=== PATIENT | male | born 1990 | race Caucasian/White ===

== ENCOUNTER 2018-12-13 16:42 | Observation (INO) | payer OTHER ==
[~2018-12-13] VITALS: Ht 180.3 cm; Wt 72.6 kg
[~2018-12-13 16:42] MED LIST: Amoxicillin500 MG PO; Bactrim Ds Tab1 EACH PO; CEPH500 PO; PENVK500 PO; SULTRIDS PO; TRAM50 PO
[2018-12-13 17:54] LABS: BASOPHILS ABSOLUTE AUTO 0.08 K/mm3 (0.00-0.23); BASOPHILS PERCENT AUTO 1 % (0-2); EOSINOPHILS ABSOLUTE AUTO 0.34 K/mm3 (0.00-0.68); EOSINOPHILS PERCENT AUTO 3 % (0-6); Hematocrit 43.6 % (37.0-53.0); Hemoglobin 14.1 g/dL (13.5-17.5); IMMATURE GRAN ABSOLUTE AUTO 0.03 K/mm3 (0.00-0.10); IMMATURE GRAN PERCENT AUTO 0 % (0-1); LYMPHOCYTES ABSOLUTE AUTO 3.27 K/mm3 (0.84-5.20); LYMPHOCYTES PERCENT AUTO 26 % (21-46); MONOCYTES ABSOLUTE AUTO 0.95 K/mm3 (0.16-1.47); MONOCYTES PERCENT AUTO 8 % (4-13); Mean Corpuscular HGB Conc 32.3 g/dL (31.5-36.5); Mean Corpuscular Volume 93 fL (80-100); Mean Platelet Volume 9.5 fL (9.1-12.4); NEUTROPHILS ABSOLUTE AUTO 8.06 K/mm3 (1.96-9.15); NEUTROPHILS PERCENT AUTO 63 % (41-73); Platelet Count 274 K/mm3 (150-400); RDW Standard Deviation 44.1 fL (35.1-46.3); White Blood Cell Count 12.73 K/mm3 (4.00-11.30)
[2018-12-13 18:31] LABS: Alanine Aminotransfer (ALT/SGP 18 U/L (12-78); Albumin, Blood 3.9 g/dL (3.4-5.0); Alk Phos 81 U/L (50-136); Anion Gap 5 mmol/L (6-16); Aspartate Aminotrans (AST/SGOT 11 U/L (12-37); Bilirubin, Total 0.3 mg/dL (0.1-1.0); Blood Urea Nitrogen 14 mg/dL (8-24); Bun/Creatinine Ratio 18.5 (12.0-20.0); CO2, Blood 26 mmol/L (21-32); Calcium, Blood 8.7 mg/dL (8.5-10.1); Chloride, Blood 107 mmol/L (98-108); Creatinine, Blood 0.76 mg/dL (0.60-1.20); Globulin, Blood 3.8 g/dL (2.2-4.0); Glomerular Filtration Rate >60 (60-); Glucose, Blood 83 mg/dL (70-99); Potassium, Blood 3.9 mmol/L (3.5-5.5); Salicylate 3.5 mg/dL (2.8-20.0); Sodium, Blood 138 mmol/L (136-145); Total Protein, Blood 7.7 g/dL (6.4-8.2)
[2018-12-13 18:40] LABS: Acetaminophen, Random <2.0 ug/mL (10.0-30.0); Ethanol (Alcohol), Blood, Med <3 mg/dL
[2018-12-13 21:20] LABS: Source, Urine Clean Catch
[2018-12-13 21:22] LABS: Bilirubin, Urine Neg (Neg); Blood, Urine Neg (Neg); Glucose Qualitative, Urine Neg (Neg); Ketones, Urine 1+ (Neg); Leukocyte Esterase, Urine 1+ (Neg); Nitrite, Urine Neg (Neg); Protein, Urine 1+ (Neg); Urobilinogen, Urine NORM (Normal)
[2018-12-13 21:31] LABS: Appearance, Urine Clear (Clear); Color, Urine Yellow (P-Yellow)
[2018-12-13 21:32] LABS: Bacteria Mod /hpf; Red Blood Cells, Urine 0-2 /hpf (0-2); Spermatozoa Rare /hpf; Squamous Epithelial Cells Not Seen /hpf (Few)
[2018-12-13 21:34] LABS: U Amphetamine Screen DETECTED; U Barbituate Screen Not Detected; U Benzodiazapine Screen Not Detected; U Buprenorphine Screen Not Detected; U Cannabinoids Screen DETECTED; U Cocaine Screen Not Detected; U Methadone Screen Not Detected; U Methamphetamine Screen DETECTED; U Opiates Screen Not Detected; U Oxycodone Screen Not Detected; U Phencyclidine Screen Not Detected; U Propoxyphene Screen Not Detected
[2018-12-17] MEDS ORDERED: QUET100 PO (10:51)
== END 2018-12-17 11:01 | disposition home or self-care (01) ==
LOC: ER 16:42 → EOR 16:43
PROVIDERS: ADMIT Emergency Medicine
DX: F30.9 Manic episode, unspecified (principal); F23 Brief psychotic disorder; F15.10 Other stimulant abuse, uncomplicated; F17.200 Nicotine dependence, unspecified, uncomplicated
CPT/HCPCS: 36415; 80053; 81001; 84443; 85025; 87086; 99285; G0378; G0480

== ENCOUNTER 2021-04-13 10:04 | Emergency (ER) | payer OTHER ==
[~2021-04-13] VITALS: Ht 177.8 cm; Wt 79.4 kg
[~2021-04-13 10:04] MED LIST changes: +QUET100 PO
[2021-04-13] MEDS ORDERED: AMOCLA875 PO (10:07)
== END 2021-04-13 10:31 | disposition home or self-care (01) ==
LOC: ER 10:04
DX: S61.551A Open bite of right wrist, initial encounter (principal); F17.200 Nicotine dependence, unspecified, uncomplicated; Z23 Encounter for immunization; W54.0XXA Bitten by dog, initial encounter
CPT/HCPCS: 90471; 90714; 99282-25

== ENCOUNTER 2022-12-19 09:51 | Observation (INO) | payer OTHER ==
[~2022-12-19] VITALS: Ht 170.2 cm; Wt 80.7 kg
[~2022-12-19 09:51] MED LIST changes: +AMOCLA875 PO
[2022-12-19 11:15] LABS: BASOPHILS ABSOLUTE AUTO 0.03 K/mm3 (0.00-0.23); BASOPHILS PERCENT AUTO 0 % (0-2); EOSINOPHILS ABSOLUTE AUTO 0.03 K/mm3 (0.00-0.68); EOSINOPHILS PERCENT AUTO 0 % (0-6); Hematocrit 39.1 % (37.0-53.0); Hemoglobin 13.6 g/dL (13.5-17.5); IMMATURE GRAN ABSOLUTE AUTO 0.03 K/mm3 (0.00-0.10); IMMATURE GRAN PERCENT AUTO 0 % (0-1); LYMPHOCYTES ABSOLUTE AUTO 1.55 K/mm3 (0.84-5.20); LYMPHOCYTES PERCENT AUTO 16 % (21-46); MONOCYTES ABSOLUTE AUTO 0.76 K/mm3 (0.16-1.47); MONOCYTES PERCENT AUTO 8 % (4-13); Mean Corpuscular HGB 30.7 pg (26.0-34.0); Mean Corpuscular HGB Conc 34.8 g/dL (31.5-36.5); Mean Corpuscular Volume 88 fL (80-100); Mean Platelet Volume 10.4 fL (9.1-12.4); NEUTROPHILS ABSOLUTE AUTO 7.38 K/mm3 (1.96-9.15); NEUTROPHILS PERCENT AUTO 76 % (41-73); Platelet Count 226 K/mm3 (150-400); RDW Standard Deviation 42.5 fL (35.1-46.3); Red Blood Cell Count 4.43 M/mm3 (4.30-5.90); White Blood Cell Count 9.78 K/mm3 (4.00-11.30)
[2022-12-19 11:33] LABS: Ethanol (Alcohol), Blood, Med <3 mg/dL; Salicylate 4.4 mg/dL (2.8-20.0)
[2022-12-19 11:43] LABS: Acetaminophen, Random <2.0 ug/mL (10.0-30.0); Alanine Aminotransfer (ALT/SGP 11 U/L (12-78); Albumin, Blood 3.6 g/dL (3.4-5.0); Alk Phos 64 U/L (50-136); Anion Gap 6 mmol/L (6-16); Aspartate Aminotrans (AST/SGOT 10 U/L (12-37); Bilirubin, Total 0.4 mg/dL (0.1-1.0); Blood Urea Nitrogen 6 mg/dL (8-24); Bun/Creatinine Ratio 8.4 (12.0-20.0); CO2, Blood 25 mmol/L (21-32); Calcium, Blood 8.9 mg/dL (8.5-10.1); Chloride, Blood 108 mmol/L (98-108); Creatinine, Blood 0.71 mg/dL (0.60-1.20); Globulin, Blood 3.6 g/dL (2.2-4.0); Glomerular Filtration Rate 125 (60-); Glucose, Blood 109 mg/dL (70-99); Potassium, Blood 2.8 mmol/L (3.5-5.5); Sodium, Blood 139 mmol/L (136-145); Total Protein, Blood 7.2 g/dL (6.4-8.2)
[2022-12-19 12:26] LABS: Source, Urine Clean Catch
[2022-12-19 12:34] LABS: Appearance, Urine Clear (Clear); Bilirubin, Urine Neg (Neg); Blood, Urine Neg (Neg); Color, Urine Yellow (P-Yellow); Glucose Qualitative, Urine Neg (Neg); Ketones, Urine 1+ (Neg); Leukocyte Esterase, Urine Neg (Neg); Nitrite, Urine Neg (Neg); Protein, Urine 1+ (Neg); Urobilinogen, Urine 2+ (Normal)
[2022-12-19 13:06] LABS: U Amphetamine Screen DETECTED; U Barbituate Screen Not Detected; U Benzodiazapine Screen Not Detected; U Buprenorphine Screen Not Detected; U Cannabinoids Screen DETECTED; U Cocaine Screen Not Detected; U Methadone Screen Not Detected; U Methamphetamine Screen DETECTED; U Opiates Screen Not Detected; U Oxycodone Screen Not Detected; U Phencyclidine Screen Not Detected; U Propoxyphene Screen Not Detected
[2022-12-19 14:01] LABS: Influenza A, PCR NEGATIVE (NEGATIVE); Influenza B, PCR NEGATIVE (NEGATIVE); Resp Syncytial Virus, PCR NEGATIVE (NEGATIVE); SARS-Cov-2 (COVID-19) PCR, MMC NEGATIVE (NEGATIVE)
== END 2022-12-21 20:15 ==
LOC: ER 09:51 → EOR 09:52
PROVIDERS: ADMIT Student in an Organized Health Care Education/Training Program
DX: F20.9 Schizophrenia, unspecified (principal); F15.10 Other stimulant abuse, uncomplicated; F12.10 Cannabis abuse, uncomplicated; F31.9 Bipolar disorder, unspecified; S61.511A Laceration without foreign body of right wrist, initial encounter; W25.XXXA Contact with sharp glass, initial encounter; F17.210 Nicotine dependence, cigarettes, uncomplicated; F17.290 Nicotine dependence, other tobacco product, uncomplicated; Z79.899 Other long term (current) drug therapy; Z20.822 Contact with and (suspected) exposure to COVID-19; Z23 Encounter for immunization
CPT/HCPCS: 0241U; 12001; 73100; 80053; 83735; 85025; 90471; 90714; 93005; 93010; 99285-25; A9270; G0378; G0480; Q3014

== ENCOUNTER 2025-04-16 11:29 | Inpatient (IN) | payer OTHER ==
[~2025-04-16] VITALS: Ht 170.2 cm; Wt 78.7 kg
[2025-04-16] MEDS ORDERED: OLANZapine ODT 10 MG Tab MM PRN (14:50)
[2025-04-16] MEDS ORDERED: Calcium Carbonate 500 MG Tab Chew PO PRN (14:50)
[2025-04-16] MEDS ORDERED: TraZODone HCl 50 MG Tab PO PRN (14:50)
[2025-04-16] MEDS ORDERED: Ondansetron 4 MG SoluTab MM PRN (14:50)
[2025-04-16] MEDS ORDERED: Melatonin 3 MG Tab PO PRN (14:50)
[2025-04-16] MEDS ORDERED: Acetaminophen 325 MG TABLET PO PRN (14:50)
[2025-04-16] MEDS ORDERED: Polyethylene Glycol 3350 17 gm PO PRN (14:50)
[2025-04-16] MEDS ORDERED: Ibuprofen 600 MG Tab PO PRN (14:55)
[2025-04-16] MEDS ORDERED: Haloperidol 5 MG Tab PO PRN (14:55)
[2025-04-16] MEDS ORDERED: HydrOXYzine Pamoate 50 MG Cap PO PRN (14:55)
[2025-04-16] MEDS ORDERED: Haloperidol Lactate Inj. 5 MG/ML Injection IM PRN (14:55)
[2025-04-16] MEDS ORDERED: DiphenhydrAMINE HCl 50 MG/ML 1ML Vial IM PRN (14:55)
[2025-04-16] MEDS ORDERED: Aluminum Hydroxide 320MG/5ML 473 ML PO PRN (14:55)
[2025-04-16] MEDS ORDERED: DiphenhydrAMINE HCl 50 MG Cap PO PRN (14:55)
[2025-04-16] MEDS ORDERED: LORazepam 2 MG Tab PO PRN (15:00)
[2025-04-16] MEDS ORDERED: LORazepam 2 MG/ML 1ML Injection IM PRN (15:00)
[2025-04-16 15:09] VITALS: BP 123/80
[2025-04-16 15:45] VITALS: BP 123/80
--- NOTE | 2025-04-16 18:11 | NUR ---
ADMISSION PT ADMITTED FROM ED FOR DECOMPENSATED SCHIZOAFFECTIVE DISORDER. WHEN PT CAME TO U HE WAS VERY SLEEPY AND UNABLE TO ANSWER MOST QUESTIONS. PT MEDICATED IN THE ED AND HAD NOT SLEPT FOR A LONG TIME PRIOR TO ADMISSION, SO PT IS CURRENTLY RESTING. PT UNABLE TO SIGN ADMISSION PAPER WORK DUE TO BEING TOO TIRED. MOST INFORMATION GATHERED FROM ED CHART. PT HOWEVER, DID DENY SI OR HI. HE SAID THAT HE WAS BROUGHT TO THE ED BECAUSE HE "HAD A SPATULA AND WANTED MY DOG AND EVERYONE HAD MY DOG". PER FAMILY THE PATIENT WAS RECENTLY DISCHARGED FROM INPATIENT PSYCH FACILITY AND HAS NOT BEEN TAKING HIS MEDICATIONS. SKIN CHECK CONDUCTED BY 2 RN'S AND NO ABNORMALITIES NOTED. HE WAS ORIENTED TO THE UNIT AND HIS ROOM. PT HAD A SNACK AND HAS BEEN SLEEPING SINCE. HE CONTINUES TO BE MONITORED Q15 FOR SAFETY AND WELLNESS.
[2025-04-16 20:18] VITALS: BP 107/71
[2025-04-16] MEDS ORDERED: OLANZapine 10 MG Tab PO SCH (21:00)
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
--- NOTE | 2025-04-17 04:20 | NUR ---
END OF SHIFT UPDATE ASSUMED CARE OF PT AT 2345. NO ACUTE CHANGES. PT HAS REMAINED IN BED THROUGHOUT THE NIGHT. Q15 MINUTE CHECKS TO CONTINUE PER PT SAFETY.
[2025-04-17 07:39] LABS: Cholesterol 213 mg/dL (50-200); HDL Cholesterol 43 mg/dL (>39); LDL/HDL RATIO 3.5; Low Density Lipoprotein Chol 151 mg/dL (0-110); Triglycerides 93 mg/dL (30-140); Very Low Density Lipoprot Chol 18 mg/dL (6-28)
[2025-04-17 08:57] VITALS: BP 124/90
[2025-04-17] MEDS ORDERED: Multivitamins 1 Tab PO SCH (09:00)
--- NOTE | 2025-04-17 18:17 | NUR ---
SHIFT SUMMARY PT AxOx4. PLEASANT AND COOPERATIVE WITH CARE, BUT TENDS TO BECOME LOUD AT TIMES AND NEEDS REMINDED TO LOWER HIS TONE. PT IS EASILY REDIRECTABLE. HE ALSO HAD SOME DELUSIONS ABOUT NEEDING TREATMENT FOR A BITE HE GOT ON HIS HAND ABOUT A YEAR AGO. PT'S HAND WAS EXAMINED AND SHOWED NO SIGNS OR SYMPTOMS OF INFECTION OR SKIN IRRITATION. PATIENT WAS ENCOURAGED TO KEEP HANDS HYGIENIC MUCH POSSIBLE AND HE WAS AGREEABLE TO THIS PLAN. HE IS CURRENTLY ON AN INVOLUNTARY HOLD. HE DENIES SI/HI AND AVTH THIS SHIFT AND HAS BEEN PARTICIPATING IN GROUPS AND TAKING HIS MEDICATION PRESCRIBED. HE IS CURRENTLY IN THE DINING ROOM EATING DINNER. DENIES ANY NEEDS AT THIS TIME.
[2025-04-17 21:00] VITALS: BP 127/89
[2025-04-17] MEDS ORDERED: RisperiDONE 1 MG Tab PO SCH (21:00)
--- NOTE | 2025-04-18 04:23 | NUR ---
SHIFT SUMMARY PT LAYING IN BED AT START OF SHIFT, AWAKES EASILY FOR EVENING SNACK. ORIENTED TO SELF AND PLACE. PT WITH PRESSURED SPEECH, FLIGHT OF IDEAS AND DELUSIONAL. CONVERSATION IS DIFFICULT TO FOLLOW AND UNDERSTAND AT TIMES. HE STATED HIS MOOD WAS "NOT TRYING TO BE A SPAGHETTI BALL NIGHTMARE." PT DENIES ANY SI, HI, THOUGHTS OF SELF HARM OR HALLUCINATIONS, HOWEVER HE STATES THAT HE SAW ALIENS SITTING IN THE PAST 56 HOURS. HE HAD EVENING SNACK AND WAS COMPLIANT WITH MEDS. HE WENT TO BED AFTER SNACK AND HAS REMAINED IN BED THROUGHOUT THE NIGHT. Q15 MINUTE CHECKS TO CONTINUE PER PT SAFETY.
[2025-04-18] MEDS ORDERED: Paliperidone Palmitate 234 MG/1.5 ML SYR IM ONE (17:00)
--- NOTE | 2025-04-18 17:41 | NUR ---
SHIFT SUMMARY: PT ALERT AND COOPERATIVE WITH CARE. PT CONVERSATION TANGINTAL, BOUNCING FROM SUBJECT TO SUBJECT. UNABLE TO FOLLOW THE TOPIC OF HIS COVERSATION. STATED, "I NEED TO CALL THE STEELWORKER, I NEED TO REPORT SEX OFFENDER. THEN STATED THAT HE HAD HAS " A MILLION DOLLAR NECKLACE OUT THERE". PT COMPLIANT WITH MEDICATIONS AND CARE. INVEGA INJECTION GIVEN WITHOUT DIFFICULTY. PT BECAME AGGITATED IN THE AFTERNOON AND WAS MEDICATED WITH PRN PER EMAR. PT CALMED AFTER AND SPENT TIME ON PATIO TALKING WITH PEERS AND STAFF.
--- NOTE | 2025-04-18 18:23 | NUR ---
PT PACING THE HALLS, RAISING HIS VOICE. OFFERED PT A PRN, HE STATED THAT HE IS NOT ABLE TO TAKE HALDOL. ORAL MEDS HELD AT THIS TIME.
[2025-04-18 19:32] VITALS: BP 122/87
--- NOTE | 2025-04-18 23:51 | NUR ---
MID SHIFT SUMMARY Patient very high energy this evening. Speaking very rapidly in a nonsensicle manner. Denies SI,HI and AVTH during conversation. Took all medications without difficulty. Very pleasant, very difficult to understand. Checks for safety and comfort continue every 15 minutes
--- NOTE | 2025-04-19 04:08 | NUR ---
END OF SHIFT UPDATE ASSUMED CARE OF PT AT 0015. NO ACUTE CHANGES. PT HAS REMAINED IN BED THROUGHOUT THE NIGHT. Q15 MINUTE CHECKS TO CONTINUE PER PT SAFETY.
[2025-04-19 07:25] VITALS: BP 120/91
--- NOTE | 2025-04-19 17:03 | NUR ---
SHIFT SUMMARY: PT ALERT AND COOPERATIVE WITH CARE. DENIES SI, HI AND AVH TODAY. PT COMPLIANT WITH MEDICATIONS. PT ATTENDED GROUPS AND WAS PRESENT FOR MEALS. PT SPENT TIME IN THE DAY ROOM WATCHING TV, PACING IN THE HALLS AND OUTSIDE ON THE PATIO. PT ACTIVE IN THE MILIEU TALKING WITH PEERS AND STAFF.
--- NOTE | 2025-04-19 17:06 | NUR ---
"Spiritual Care Visit | Pt. Request Met Pt. in a [facility] meeting room. Pt. is pleasant, but ocassionally displays moment of impulsive confusion. Attempted to facilitate a life review. Pt. verbalized some details of his family and neighbors. Through theraputic listening it was my assessment that the Pt. requested specific things that this metal window frame maker could not provide other than prayer. Prayed with the Pt. Pt. verbalized gratitude for the spiritual care visit."
[2025-04-19 21:07] VITALS: BP 155/85
--- NOTE | 2025-04-20 04:59 | NUR ---
SHIFT SUMMARY: PATIENT WAS IN THE DAY ROOM AND ON THE PATIO AT THE BEGINNING OF THE SHIFT, TALKING WITH STAFF AND PEERS, AND DANCING AND SINGING. HE PARTICIPATED IN WINE SPECIALIST, BUT ANSWERED QUESTIONS IN A TANGENTIAL AND NONSENSICAL MANNER. HE DENIED SUICIDAL IDEATION, THOUGHTS OF SELF HARMING AND A/V HALLUCINATIONS. HE PARTICIPATED IN SNACK AND WRAP UP GROUP AT 2030 IN THE DINING AREA, AND WAS COMPLIANT WITH EVENING MEDICATIONS. HE WENT TO BED SHORTLY AFTER SNACK AND WAS NOTED TO BE RESTING QUIETLY WITH EYES CLOSED AND RESPIRATIONS CONFIRMED FOR THE REMAINDER OF THE SHIFT. CONTINUING TO MONITOR FOR SAFETY WITH Q15 MINUTE CHECKS.
[2025-04-20 08:48] VITALS: BP 125/85
[2025-04-20] MEDS ORDERED: HYDPAM50 PO (15:58)
[2025-04-20] MEDS ORDERED: TRAZ50 PO (15:59)
[2025-04-20] MEDS ORDERED: RISP2 PO (15:59)
--- NOTE | 2025-04-20 17:54 | NUR ---
DISCHARGE SUMMARY: PT DISCHARGED TO HOME WITH HIS MOTHER WITH ALL OF HIS BELONGINGS AND PRINTED DISCHARGE INSTRUCTIONS. PT DISCHARGED AT 1800.
== END 2025-04-20 18:00 | disposition home or self-care (01) | DRG 885 ==
LOC: BHU 11:29
PROVIDERS: ADMIT Student in an Organized Health Care Education/Training Program
DX: F20.0 Paranoid schizophrenia (principal); R45.851 Suicidal ideations; F12.90 Cannabis use, unspecified, uncomplicated; Z79.899 Other long term (current) drug therapy; Z79.1 Long term (current) use of non-steroidal anti-inflammatories (NSAID)
CPT/HCPCS: 36415; 80061; 83036; A9270

== ENCOUNTER 2025-06-01 04:50 | Emergency (ER) | payer OTHER ==
[~2025-06-01] VITALS: Ht 180.3 cm; Wt 111.1 kg
[~2025-06-01 04:50] MED LIST changes: +HYDPAM50 PO; +RISP2 PO; +TRAZ50 PO
[2025-06-01 05:35] LABS: BASOPHILS ABSOLUTE AUTO 0.03 K/mm3 (0.00-0.23); BASOPHILS PERCENT AUTO 0 % (0-2); EOSINOPHILS ABSOLUTE AUTO 0.04 K/mm3 (0.00-0.68); EOSINOPHILS PERCENT AUTO 0 % (0-6); Hematocrit 36.2 % (37.0-53.0); Hemoglobin 11.9 g/dL (13.5-17.5); IMMATURE GRAN ABSOLUTE AUTO 0.04 K/mm3 (0.00-0.10); IMMATURE GRAN PERCENT AUTO 0 % (0-1); LYMPHOCYTES ABSOLUTE AUTO 2.11 K/mm3 (0.84-5.20); LYMPHOCYTES PERCENT AUTO 15 % (21-46); MONOCYTES ABSOLUTE AUTO 1.65 K/mm3 (0.16-1.47); MONOCYTES PERCENT AUTO 12 % (4-13); Mean Corpuscular HGB Conc 32.9 g/dL (31.5-36.5); Mean Corpuscular Volume 90 fL (80-100); NEUTROPHILS ABSOLUTE AUTO 10.34 K/mm3 (1.96-9.15); NEUTROPHILS PERCENT AUTO 73 % (41-73); NRBC ABSOLUTE 0.00 K/mm3 (0.00-0.02); NRBC Auto 0.0 /100 WBC (0.0-0.2); Platelet Count 245 K/mm3 (150-400); RDW Coefficient Variation 14.5 % (11.7-14.2); RDW Standard Deviation 47.4 fL (35.1-46.3)
[2025-06-01 06:20] LABS: Ethanol (Alcohol), Blood, Med <3 mg/dL; Salicylate 2.1 mg/dL (2.8-20.0)
[2025-06-01 06:24] LABS: Acetaminophen, Random <2.0 ug/mL (10.0-30.0); Alanine Aminotransfer (ALT/SGP 22 U/L (12-78); Albumin, Blood 3.6 g/dL (3.4-5.0); Albumin/Globulin Ratio 1.0 (0.8-1.8); Anion Gap 9 mmol/L (3-11); Aspartate Aminotrans (AST/SGOT 16 U/L (12-37); Bilirubin, Total 1.1 mg/dL (0.1-1.0); Blood Urea Nitrogen 15 mg/dL (8-24); CO2, Blood 26 mmol/L (21-32); Calcium, Blood 8.6 mg/dL (8.5-10.1); Chloride, Blood 103 mmol/L (98-108); Creatinine, Blood 0.87 mg/dL (0.60-1.20); Globulin, Blood 3.5 g/dL (2.2-4.0); Glucose, Blood 99 mg/dL (70-99); Potassium, Blood 3.4 mmol/L (3.5-5.5); Sodium, Blood 135 mmol/L (136-145); Total Protein, Blood 7.1 g/dL (6.4-8.2)
[2025-06-01] MEDS ORDERED: NS 1,000 ML IV SCH (09:10)
[2025-06-01 09:31] LABS: Source, Urine Clean Catch
[2025-06-01 09:40] LABS: Bilirubin, Urine Neg (Neg); Glucose Qualitative, Urine Neg (Neg); Ketones, Urine 3+ (Neg); Leukocyte Esterase, Urine Neg (Neg); Protein, Urine Neg (Neg); Specific Gravity, Urine 1.020 (1.003-1.022); Urobilinogen, Urine NORM (Normal)
[2025-06-01 09:46] LABS: Color, Urine Yellow (P-Yellow)
[2025-06-01 09:53] LABS: U Amphetamine Screen DETECTED; U Barbituate Screen Not Detected; U Benzodiazapine Screen Not Detected; U Buprenorphine Screen Not Detected; U Cannabinoids Screen DETECTED; U Cocaine Screen Not Detected; U Methadone Screen Not Detected; U Methamphetamine Screen DETECTED; U Opiates Screen Not Detected; U Oxycodone Screen Not Detected; U Phencyclidine Screen Not Detected
[2025-06-01 13:55] VITALS: BP 105/59
== END 2025-06-01 13:55 | disposition home or self-care (01) ==
LOC: ER 04:50
PROVIDERS: Emergency Medicine
DX: T43.591A Poisoning by other antipsychotics and neuroleptics, accidental (unintentional), initial encounter (principal); R40.0 Somnolence; F25.9 Schizoaffective disorder, unspecified; F15.10 Other stimulant abuse, uncomplicated; Z79.899 Other long term (current) drug therapy; F17.210 Nicotine dependence, cigarettes, uncomplicated
CPT/HCPCS: 80053; 80320; 81003; 83735; 85025; 93005; 93010; 99284-25; A9270; G0480; J3480; J7030; J7050

== ENCOUNTER 2025-07-03 11:31 | Observation (INO) | payer OTHER ==
[~2025-07-03] VITALS: Ht 180.3 cm; Wt 104.3 kg
[2025-07-03 12:59] LABS: Source, Urine Clean Catch
[2025-07-03 13:11] LABS: Bilirubin, Urine Neg (Neg); Color, Urine Yellow (P-Yellow); Glucose Qualitative, Urine Neg (Neg); Ketones, Urine Neg (Neg); Leukocyte Esterase, Urine Neg (Neg); Protein, Urine Neg (Neg); Specific Gravity, Urine 1.010 (1.003-1.022); Urobilinogen, Urine NORM (Normal)
[2025-07-03 13:12] LABS: BASOPHILS ABSOLUTE AUTO 0.04 K/mm3 (0.00-0.23); BASOPHILS PERCENT AUTO 0 % (0-2); EOSINOPHILS ABSOLUTE AUTO 0.18 K/mm3 (0.00-0.68); EOSINOPHILS PERCENT AUTO 2 % (0-6); Hematocrit 40.9 % (37.0-53.0); Hemoglobin 13.8 g/dL (13.5-17.5); IMMATURE GRAN ABSOLUTE AUTO 0.03 K/mm3 (0.00-0.10); IMMATURE GRAN PERCENT AUTO 0 % (0-1); LYMPHOCYTES ABSOLUTE AUTO 2.63 K/mm3 (0.84-5.20); LYMPHOCYTES PERCENT AUTO 28 % (21-46); MONOCYTES ABSOLUTE AUTO 1.00 K/mm3 (0.16-1.47); MONOCYTES PERCENT AUTO 11 % (4-13); Mean Corpuscular HGB Conc 33.7 g/dL (31.5-36.5); Mean Corpuscular Volume 89 fL (80-100); NEUTROPHILS ABSOLUTE AUTO 5.39 K/mm3 (1.96-9.15); NEUTROPHILS PERCENT AUTO 58 % (41-73); NRBC ABSOLUTE 0.00 K/mm3 (0.00-0.02); NRBC Auto 0.0 /100 WBC (0.0-0.2); Platelet Count 381 K/mm3 (150-400); RDW Coefficient Variation 13.7 % (11.7-14.2); RDW Standard Deviation 44.7 fL (35.1-46.3)
[2025-07-03 13:24] LABS: Ethanol (Alcohol), Blood, Med <3 mg/dL; Salicylate 2.6 mg/dL (2.8-20.0)
[2025-07-03 13:26] LABS: U Amphetamine Screen DETECTED; U Barbituate Screen Not Detected; U Benzodiazapine Screen Not Detected; U Buprenorphine Screen Not Detected; U Cannabinoids Screen DETECTED; U Cocaine Screen Not Detected; U Methadone Screen Not Detected; U Methamphetamine Screen DETECTED; U Opiates Screen Not Detected; U Oxycodone Screen Not Detected; U Phencyclidine Screen Not Detected
[2025-07-03 13:48] VITALS: BP 126/86
[2025-07-03 13:49] LABS: Alanine Aminotransfer (ALT/SGP 17 U/L (12-78); Albumin, Blood 3.2 g/dL (3.4-5.0); Albumin/Globulin Ratio 0.9 (0.8-1.8); Anion Gap 9 mmol/L (3-11); Aspartate Aminotrans (AST/SGOT 8 U/L (12-37); Bilirubin, Total 0.4 mg/dL (0.1-1.0); Blood Urea Nitrogen 7 mg/dL (8-24); CO2, Blood 26 mmol/L (21-32); Calcium, Blood 8.9 mg/dL (8.5-10.1); Chloride, Blood 107 mmol/L (98-108); Creatinine, Blood 0.73 mg/dL (0.60-1.20); Globulin, Blood 3.6 g/dL (2.2-4.0); Glucose, Blood 87 mg/dL (70-99); Potassium, Blood 3.8 mmol/L (3.5-5.5); Sodium, Blood 138 mmol/L (136-145); Total Protein, Blood 6.8 g/dL (6.4-8.2)
[2025-07-03 13:55] LABS: Acetaminophen, Random <2.0 ug/mL (10.0-30.0)
== END 2025-07-03 16:40 | disposition other institution (70) ==
LOC: ER 11:31 → EOR 11:32
PROVIDERS: ADMIT Student in an Organized Health Care Education/Training Program
DX: F23 Brief psychotic disorder (principal); F25.9 Schizoaffective disorder, unspecified; F15.90 Other stimulant use, unspecified, uncomplicated; F17.210 Nicotine dependence, cigarettes, uncomplicated; Z79.899 Other long term (current) drug therapy; Z91.148 Patient's other noncompliance with medication regimen for other reason
CPT/HCPCS: 80053; 80320; 81003; 85025; 93005; 93010; 99285-25; A9270; G0378; G0480

== ENCOUNTER 2025-07-03 15:17 | Inpatient (IN) | payer OTHER ==
[~2025-07-03] VITALS: Ht 180.3 cm; Wt 79.4 kg
[2025-07-03 16:58] VITALS: BP 113/76
[2025-07-03] MEDS ORDERED: Aluminum Hydroxide 320MG/5ML 473 ML PO PRN (17:00)
[2025-07-03] MEDS ORDERED: Haloperidol Lactate Inj. 5 MG/ML Injection IM PRN (17:00)
[2025-07-03] MEDS ORDERED: DiphenhydrAMINE HCl 50 MG/ML 1ML Vial IM PRN (17:00)
[2025-07-03] MEDS ORDERED: Ondansetron 4 MG SoluTab MM PRN (17:05)
[2025-07-03] MEDS ORDERED: Polyethylene Glycol 3350 17 gm PO PRN (17:05)
[2025-07-03 17:43] VITALS: BP 113/76
--- NOTE | 2025-07-03 18:21 | NUR ---
ADMISSION PT ADMITTED FROM [facility] FOR PSYCHOSIS. PT EXPERIENCING DELUSIONS LIKE "MY BLOOD IS BOILING" AND "I FEEL LIKE I'M JUST GOING TO POP". PT'S SPEECH IS TANGENTIAL AND IS A POOR HISTORIAN AT THIS TIME. PT CHANGED INTO UNIT BASED SCRUBS AND SKIN CHECK COMPLETED WITH CLAUDIA MCLEAN. PT ORIENTED TO THE UNIT AND CONSENTS SIGNED. PT UNABLE TO ANSWER MOST ADMISSION QUESTIONS. HE DENIES SI, HI. UNCLEAR IF PT IS EXPERIENCING HALLUCINATIONS. HE REPORTS BEING HOT/HAVING A FEVER AND THAT HIS "BODY IS NOT ACTING RIGHT". IN THE ER HE REPORTED THAT HIS BLOOD WAS BOILING AND THAT HE NEEDED A "MEDICAL SHOWER". PT ATE A SNACK/DINNER AND HAS BEEN RESTING IN HIS ROOM.
[2025-07-03 20:39] VITALS: BP 119/70
--- NOTE | 2025-07-04 04:12 | NUR ---
SHIFT SUMMARY: PATIENT WAS IN HIS ROOM LYING IN BED AT THE BEGINNING OF THE SHIFT. HE RESPONDED TO HIS NAME STATED SOFTLY AND WAS ABLE TO ANSWER 3RD GRADE TEACHER QUESTIONS IN A MOSTLY LOGICAL AND LINEAR MANNER. HE STATED THAT "IT'S BEEN A HARD DAY" AND THAT "SOMETIMES I FEEL LIKE THERE ARE THESE THINGS, SORT OF LIKE CLOUDS, BUT THEY CAN BE UP THERE" (INDICATES CEILING). HE STATED, "THEY MAKE ME NERVOUS, ANXIOUS, BECAUSE I DON'T KNOW WHAT THEY ARE GOING TO DO." HE STATED THAT HE SEES THEM, BUT DOES NOT HEAR THEM. HE DENIED SUICIDAL IDEATION, THOUGHTS OF SELF HARMING AND A/V/T HALLUCINATIONS. HOWEVER, HE CONTINUED TO STATE THAT THERE WERE "CLOUD LIKE THINGS" ABOVE HIM, TRYING TO "POUR THINGS IN MY MOUTH SOMETIMES". HE STATED THAT HE DID NOT WANT SNACK, BUT WHEN SNACK TIME CAME, HE DID GET UP AND PARTICIPATED IN SNACK AND WRAP UP GROUP IN THE DINING AREA AT 2030. HE WAS COMPLIANT WITH EVENING MEDICATIONS, AND WENT TO BED IMMEDIATELY AFTER SNACK TIME. HE WAS NOTED TO BE RESTING IN BED WITH EYES CLOSED AND RESPIRATIONS CONFIRMED FOR MOST OF THE NIGHT. HE WAS UP X1 AT 0330, YELLING OUT. HE STATED THAT HE WAS "ANXIOUS" AND "I WANT SOMETHING FOR ANXIETY". HIS MASS SCORE WAS 5. HE WAS GIVEN A VISTARIL WITH GOOD EFFECT AND RESTED THE REMAINDER OF THE SHIFT. CONTINUING TO MONITOR FOR SAFETY WITH Q15 MINUTE CHECKS.
[2025-07-04 07:58] LABS: CHOL/HDL RATIO 4.1; Cholesterol 165 mg/dL (50-200); HDL Cholesterol 40 mg/dL (>39); LDL/HDL RATIO 2.7; Low Density Lipoprotein Chol 108 mg/dL (0-110); Triglycerides 86 mg/dL (30-140); Very Low Density Lipoprot Chol 17 mg/dL (6-28)
[2025-07-04] MEDS ORDERED: Multivitamins 1 Tab PO SCH (09:00)
--- NOTE | 2025-07-04 09:36 | NUR ---
SHIFT ASSESSMENT: PT WAS RESTING IN BED AT THE TIME OF ASSESSMENT. HE DENIED SI, HI AND AVH. PT REPORTED SOME ANXIETY BUT SAID IT WAS NOT UNUSUAL FOR HIM. HE DESCRIBED HIS MOOD , "IT'S ALRIGHT." HIS AFFECT WAS CONGRUENT WITH HIS STATED MOOD. WHEN ASKED IF HE HAD GOALS FOR TODAY HE REPLIED, "EAT AND DRINK." AT 0935 PT CAME TO THE NURSES STATION AND ASKED TO BE ABLE TO REST DURING THIS GROUP. HE WAS GIVEN THE OPTION BUT TOLD THAT HE WOULD BE EXPECTED TO GO THE THE OTHER GROUPS OF THE DAY. HE AGREED. AT FIRST HE BECAME A LITTLE UPSET AND WAS VERBALLY LOUD...IT WAS EXPLAINED THAT HE NEEDED TO EXPLAIN HIMSELF CALMLY AND HE LOWERED HIS VOICE.
--- NOTE | 2025-07-04 13:08 | NUR ---
ASSUMED CARE OF PT. REPORT RECIEVED FROM OWEN TAYLOR.
--- NOTE | 2025-07-04 15:39 | NUR ---
PT ASKED TO GO TO GROUP. AT THAT TIME HE CAME TO THE NURSES STATION AGGITATED YELLING THAT HE IS NOT HERE FOR HIS HEAD AND THAT HE NEEDED ACTUAL MEDICAL TREATMENT. HE REPORTS HIS BODY IS NOT MAKING WATER AND THAT HIS HEAD AND SKIN WERE LEAKING WATER EVERYWHERE. HE BELIEVES HIS ISSUES ARE SOMATIC. HE WAS ABLE TO BE REDIRECTED FOR A FEW MONMENTS AT A TIME, BUT WOULD QUICKLY BEGIN TO ESCALATE IN VOICE AND POSTURE. PT EXCUSED FROM GROUP AND OFFERED PRN MEDICATIONS. HE ACCEPTED AND IS NOW RESTING IN BED EYES CLOSED RR EVEN AND UNLABORED
--- NOTE | 2025-07-04 17:44 | NUR ---
SINCE ASSUMING CARE OF THIS PT HE HAS HAD ONE EPISODE THIS AFTERNOON WITH STEADY ESCELATION OF AGITATION. SEE NOTE DONE EARLIER BY MELE TAYLOR. AFTER HE RESTED FOR A LITTLE WHILE POST PRN MEDICATION ADMINISTRATION HE WAS CALM AND COOPERATIVE WITH STAFF. NO OTHER ACUTE TO EVENTS AT THIS TIME.
[2025-07-04 20:44] VITALS: BP 109/70
--- NOTE | 2025-07-05 04:08 | NUR ---
SHIFT SUMMARY Patient spent the bulk of the evening in bed except to have snack with his peers, then right back to bed. Denied SI, HI and AH, but is still having Hallucinations about something "pushing on him and causing him to lose air" out his back and rectum. Evening medications taken easily, and patient has been asleep since 2129. Will continue close monitoring every 15 minutes for safety and comfort.
[2025-07-05 08:43] VITALS: BP 120/90
--- NOTE | 2025-07-05 11:21 | NUR ---
SHIFT ASSESSMENT: PT DENIED SI, HI, ANXIETY AND PAIN. HE ENDORSED SOMATIC HALLUCINATIONS, "THE STATIC IN MY BODY DOESN'T FEEL NORMAL...IT FEELS WEAK." HE DESCRIBLED HIS MOOD , "PRETTY GOOD...ABOUT 7/10w." PT'S GOAL FOR THE DAY IS, "TO COMPLETE GROUPS." PT RESTED IN BED THIS MORNING AND THEN GOT UP FOR BREAKFAST AND GROUPS. PT HAS BEEN COOPERATIVE WITH CARE.
--- NOTE | 2025-07-05 11:54 | NUR ---
PT YELLING, LOUD, AND APPEARS FRUSTRATED. HE REPORTS SEEING A MIRAGE AND IS UNABLE TO CONCENTRATE ON THE HANDOUTS IN GROUP, PT REPORTS FEELING THE SENSATION OF HAIR ON HIS FACE AND THIS IS DISTRESSING TO HIM. HE IS ALSO CONCERNED ABOUT HIS HYDRATION STATUS, LAST BM ETC. PT PWD, THE SENSATIONS HE IS FEELING ARE NOT CONFIRMED BY VISUALIZING ANY HAIR OR FOREIGN BODY.
--- NOTE | 2025-07-05 12:56 | NUR ---
PT IN BED, LYING ON LEFT SIDE, RESPIRATIONS EVEN AND UNLABORED, APPEARS TO BE RESTING, NO LONGER REACTING TO INTERNAL STIMULI.
--- NOTE | 2025-07-06 04:00 | NUR ---
SHIFT SUMMARY: PT A/O X4. DENIES TO BE SI, HI AND AVH. PT HAS BEEN APPROPRIATE. HAS BEEN IN BED SINCE THE BEGINNING OF SHIFT. ENCOURAGED TO COME OUT FOR SNACK WHICH HE DID THEN RETURNED BACK TO BED. AT 0030 C/O OF LEFT HAND FEELING NUMB. HAND WAS WARM TO TOUCH, WAS ABLE TO MOVE FINGERS FREELY, ABLE TO MAKE HAND INTO FIST. MASSAGED FINGERS FOR A MINUTE AND THEN HE SAID HE WAS OK. PT AWAKENED AT 0355 AND REQUESTED VISTARIL TO HELP HIM SLEEP. HE HAD BEEN SLEEPING WELL . ASKED WHAT WAS KEEPING HIM AWAKE AND HE REPLIED THE EPISODE OF HIS HAND WHICH FEELS OK NOW. GIVEN MED AND PT WENT BACK TO BED. WILL CONTINUE TO MONITOR Q 15 MINUTES AND TO SEE IF RETURNS BACK TO SLEEP. PT RESTLESS AND UNCOMFORTABLE PER PT.
--- NOTE | 2025-07-06 04:48 | NUR ---
PT IS BACK TO SLEEP. RR EVEN AND UNLABORED. WILL CONTINUE TO MONITOR.
[2025-07-06 09:02] VITALS: BP 117/90
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
[2025-07-07 09:05] VITALS: BP 127/108
--- NOTE | 2025-07-07 17:12 | NUR ---
SHIFT SUMMARY PT HAS BEEN IN BED MOST OF THE SHIFT OTHER THAN MEALS/SNACK AND TV TIME THIS AFTERNOON. HE HAD A SHOWER, APPEARS WELL KEPT WITH COOPERATIVE BEHAVIOR AND SLOW CLEAR SPEECH. HE REPORTS FEELING GOOD TODAY AND IT IS CONGRUANT WITH STATED MOOD. A&Ox4, HE HAS BEEN MEDICATION COMPLIANT WITH NO PRN'S GIVEN TODAY. PT WAS STARTLED THIS AM WHEN WOKEN FOR MORNING MEDS AND YELLED AT THIS RN "WHAT THE FUCK MAN, GET OUTTA HERE YOU FUCKING BITCH" HOWEVER HE VERY QUICKLY APOLOGIED WHEN HE REALIZED WHAT HAD JUST HAPPENED. HE HAS BEEN APPROPRIATE SINCE. PT HAS RECEIVED Q15 MIN VISUAL SAFETY CHECKS THROUGHOUT THE SHIFT
--- NOTE | 2025-07-08 04:30 | NUR ---
SHIFT SUMMARY: PATIENT WAS IN BED AWAKE STARING AT THE CEILING AT THE BEGINNING OF THE SHIFT. HE WAS ABLE TO ANSWER TEAM COORDINATOR QUESTIONS IN A MOSTLY LOGICAL AND LINEAR MANNER. HE DENIED SUICIDAL IDEATION, STATING, "I'VE NEVER BEEN SUICIDAL", AND ALSO DENIED THOUGHTS OF SELF HARMING AND A/V/T HALLUCINATIONS. HE WAS ASKED IF THERE WERE ANY PHYSICAL COMPLAINTS, AND DENIED THEM AT ASSESSMENT TIME. HE PARTICIPATED IN SNACK AND WRAP UP GROUP, AND WAS COMPLIANT WITH EVENING MEDICATIONS. HE STATED THAT HE WOULD LIKE MELATONIN AND TRAZODONE, WHICH ARE APPROVED TO GIVE TOGETHER PRN BY THE DOCTOR, BUT THEN CHANGED HIS MIND ABOUT THE MELATONIN, AND ONLY TOOK TRAZODONE. HE WENT TO BED AFTER SNACK AND WAS NOTED TO BE RESTING QUIETLY WITH EYES CLOSED AND RESPIRATIONS CONFIRMED FOR THE REMAINDER OF THE SHIFT. CONTINUING TO MONITOR FOR SAFETY WITH Q15 MINUTE CHECKS.
[2025-07-08 09:15] VITALS: BP 128/91
--- NOTE | 2025-07-08 14:21 | NUR ---
MID SHIFT SUMMARY PT HAS BEEN IN BED ALL SHIFT OTHER THAN GETTING UP FOR MEALS/SNACKS. COMPLIANT WITH MED PASS AND DURING INTERVIEW HE DENIED HAVING SI/HI/AVH BUT DOES HAVE ODD DELUSIONAL THOUGHTS THAT HE CAN'T EXPLAIN. HE RECEIVED HIS FIRST INVEGA INJECTION YESTERDAY BY THIS RN, TODAY HE DENIES ANY SIDE EFFECTS FROM THE INJECTION. PT IS COOPERATIVE, NORMAL CLEAR TONE WITH SPEECH, GOOD EYE CONTACT, ALERT AND ORIENTED, HAS CONTINUED TO RECEIVE Q15 MIN SAFETY CHECKS. REPORT WILL BE GIVEN TO MELE TO ASSUME CARE.
[2025-07-08 21:03] VITALS: BP 121/83
--- NOTE | 2025-07-09 04:08 | NUR ---
SHIFT SUMMARY: PATIENT WAS IN HIS ROOM AT THE BEGINNING OF THE SHIFT, AWAKE AND LOOKING UP AT THE CEILING. HE STATED THAT HE HAD "MOSTLY A GOOD DAY" BUT HE IS "STILL FEELING DEPRESSED". HE STATED THAT "IT IS BETTER, THOUGH." HE WAS ABLE TO ANSWER GASOLINE PLANT OPERATOR QUESTIONS IN A LOGICAL AND LINEAR MANNER. HE DENIED SUICIDAL IDEATION, THOUGHTS OF SELF HARMING AND A/V/T HALLUCINATIONS, ALTHOUGH HE STATED, "MY FEET FEEL LIKE THE BLOOD IS BOILING IN THEM". HE PARTICIPATED IN SNACK AND WRAP UP GROUP, AND WAS COMPLIANT WITH EVENING MEDICATIONS. HE REQUESTED TRAZODONE FOR INSOMNIA, STATING, "IT HELPED LAST NIGHT". HE WENT TO BED AFTER SNACK AND WAS NOTED TO BE RESTING QUIETLY WITH EYES CLOSED AND RESPIRATIONS CONFIRMED FOR MOST OF THE REMAINDER OF THE SHIFT. HE GOT UP X1 TO REQUEST VISTARIL FOR ANXIETY, WITH A MASS SCORE OF 4. IT WAS GIVEN WITH GOOD EFFECT. CONTINUING TO MONITOR FOR SAFETY WITH Q15 MINUTE CHECKS.
[2025-07-09 08:55] VITALS: BP 111/65
--- NOTE | 2025-07-09 16:44 | NUR ---
SHIFT SUMMARY PATIENT IS AOX4 AND COMPLIANT WITH TREATMENT. PATIENT ATTENDED ALL GROUPS AND MEALS. PATIENT MAKES GOOD EYE CONTACT AND IS ABLE TO COMMUNICATE IN A CLEAR VOICE WITH APPROPRIATE VOLUME. HAS INTERACTED WELL WITH STAFF AND PEERS THIS SHIFT. CONTINUES TO BE MONITORED Q15 MINUTES FOR SAFETY.
[2025-07-09 20:23] VITALS: BP 113/79
--- NOTE | 2025-07-10 04:09 | NUR ---
SHIFT SUMMARY: PATIENT WAS IN HIS BED STARING AT THE CEILING AT THE BEGINNING OF THE SHIFT. HE WAS ABLE TO ANSWER TAFE REGISTRAR QUESTIONS IN A MOSTLY LOGICAL AND LINEAR MANNER. HE DENIED SUICIDAL IDEATION, THOUGHTS OF SELF HARMING AND A/V/T HALLUCINATIONS. HE DID NOT MENTION "CLOUDS" OR "WHITE SHAPES" AND DID NOT MENTION THAT HIS FEET FELT LIKE THEIR BLOOD WAS BOILING. HE STATED THAT HE DID GO TO GROUPS. HE DECLINED OFFER OF SNACK AND WRAP UP GROUP, BUT WAS COMPLIANT WITH EVENING MEDICATIONS. HE THEN WAS NOTED TO BE RESTING QUIETLY WITH EYES CLOSED AND RESPIRATIONS CONFIRMED FOR THE REMAINDER OF THE SHIFT. CONTINUING TO MONITOR FOR SAFETY WITH Q15 MINUTE CHECKS.
[2025-07-10 09:16] VITALS: BP 120/71
--- NOTE | 2025-07-10 16:30 | NUR ---
SHIFT SUMMARY PT A/O X3; PLEASANT AND COOPERATIVE WITH CARE. HE DENIES SI, HI, AVTH. HE RECEIVED HIS SECOND INVEGA INJECTION THIS MORNING. HE PARTICIPATED IN ALL GROUPS AND MEALS. HE CONTINUES TO BE ROUNDED ON Q15 FOR SAFETY AND COMFORT.
[2025-07-10 20:39] VITALS: BP 117/77
--- NOTE | 2025-07-11 04:49 | NUR ---
SHIFT SUMMARY PATIENT IN BED AT BEGINNING OF SHIFT. UP FOR SHORT WALK IN [place] DURING ASSESSMENT. VERBALIZED HE WAS "TIRED". DENIES SI, HI, OR AVH. AFTER SNACK PATIENT VERBALIZED THAT BECAUSE HE MIXED JELLO AND PUDDING HE NOW HAS A HEADACHE, GOOD RELIEF WITH TYLENOL. PATIENT ALSO REASSURED THAT IT IS OK TO HAVE BOTH JELLO AND PUDDING TOGETHER. PATIENT REQUESTING TRAZODONE FOR SLEEP AID. PATIENT SLEEPING OFF AND ON T/O NIGHT, AT THIS TIME APPEARS TO BE SLEEPING RESP EVEN AND UNLABORED. CONTINUE TO MONITOR Q15MIN
[2025-07-11 09:05] VITALS: BP 124/85
--- NOTE | 2025-07-11 09:40 | NUR ---
IMPORTANT DISCHARGE INFORMATION PATIENT TO BE DISCHARGED TODAY. HIS MOTHER (STIVEN) WILL BE PICKING HIM UP AROUND 1PM. HER NUMBER IS . ALL PARTIES VERBALIZE AN UNDERSTANDING. FOLLOW UP WITH PCP AT THE [facility] ON 07/16/25 AT 3:20PM. MENTAL HEALTH ASSESSMENT WILL FOLLOW PRIMARY CARE APPOINTMENT. [facility] AVAILABLE TO YOU [phone] PHARMACY: [facility] FAX NUMBER
[2025-07-11] MEDS ORDERED: TRAZ50 PO (10:59)
[2025-07-11] MEDS ORDERED: NICO21TP TOP (11:00)
--- NOTE | 2025-07-11 13:45 | NUR ---
DISCHARGE CLIENT IS AOX4 AND COOPERATIVE WITH TREATMENT. CLIENT STILL ENDORSES SOME TACTILE HALLUCINATIONS, BUT IS MUCH IMPROVED IN SEVERITY. CLIENT CONTINUES TO MAKE GOOD EYE CONTACT AND COMMUNICATE IN FLUENT SPEACH AND APPROPRIATE VOLUME. CLIENT HAS ATTENTED ALL GROUPS AND MEALS. REPORTS FEELING IN A GOOD MOOD, BUT TIRED. CLIENTS AFFECT IS CONGRUENT WITH STATED MOOD. DISCHARGE ORDERS RECEIVED. [facility] DISCHARGE PACKET, INCLUDING FOLLOW UP APPOINTMENTS, MEDICATION LIST, AND INTRUCTIONS TO REACH OUT TO [facility] OR ED IF INCREASED SYPMTOMS OCCUR. CLIENT WAS PICKED UP BY HIS MOTHER AT 1313.
== END 2025-07-11 13:13 | disposition home or self-care (01) | DRG 885 ==
LOC: BHU 15:17
PROVIDERS: ADMIT Psychiatry & Neurology Psychiatry
DX: F20.0 Paranoid schizophrenia (principal); R45.851 Suicidal ideations; F15.10 Other stimulant abuse, uncomplicated; F17.210 Nicotine dependence, cigarettes, uncomplicated; Z91.010 Allergy to peanuts; Z91.048 Other nonmedicinal substance allergy status; Z79.899 Other long term (current) drug therapy; Z56.0 Unemployment, unspecified; Z90.89 Acquired absence of other organs
CPT/HCPCS: 36415; 80061; 83036; A9270

== ENCOUNTER 2025-07-31 00:36 | Inpatient (IN) | payer OTHER ==
[~2025-07-31] VITALS: Ht 182.9 cm; Wt 186.6 kg
[~2025-07-31 00:36] MED LIST changes: +NICO21TP TOP
[2025-07-31] MEDS ORDERED: Ondansetron 4 MG SoluTab MM PRN (15:40)
[2025-07-31] MEDS ORDERED: Polyethylene Glycol 3350 17 gm PO PRN (15:40)
[2025-07-31] MEDS ORDERED: Haloperidol Lactate Inj. 5 MG/ML Injection IM PRN (15:45)
[2025-07-31] MEDS ORDERED: DiphenhydrAMINE HCl 50 MG/ML 1ML Vial IM PRN (15:45)
[2025-07-31] MEDS ORDERED: FLU VACC TS2025-26(6MOS UP)/PF 45 MCG/0.5 ML SYRINGE IM SCH (15:45)
[2025-07-31] MEDS ORDERED: LORazepam 2 MG/ML 1ML Injection IM PRN (15:45)
[2025-07-31] MEDS ORDERED: Aluminum Hydroxide 320MG/5ML 473 ML PO PRN (15:50)
[2025-07-31 16:25] VITALS: BP 123/97
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
[2025-07-31 17:10] VITALS: BP 123/97
--- NOTE | 2025-07-31 18:15 | NUR ---
PT AT NURSES STATION REQUESTING ANOTHER BLANKET. KRYSTLE AND ARELI PROVIDED. PT THEN STATED, "I NEED SOMETHING FOR ANXIETY, I'M FEELING VERY ANXIOUS". RATES HIS ANXIETY AT 9/10. PT MEDICATED WITH PRN HYDROXIZINE PER EMAR FOR MASS SCORE OF 2. AFTER TAKING HIS MEDICATION PT ASKED, "CAN PUTTING PISS ON YOUR LIPS KILL YOU?" ENCOURAGED PT NOT TO PUT URINE ON OR IN HIS MOUTH. PT STATES THAT HE TESTED HIS URINE YESTERDAY BY PUTTING IT ON HIS LIPS, STATES "IT WAS FINE SO I WON'T DO IT AGAIN".
--- NOTE | 2025-07-31 20:17 | NUR ---
MEDICATION NOTE: PT TO NURSES STATION REQUESTING AN ANTIBIOTIC. PT HAD STATED THAT HE WAS TAKING AN ANTIBIOTIC THAT HE HAD AT HOME. WHEN ASKED HIS SYMPTOMS HE STATED, "MY BRAINSTEM IS PULLING AWAY FROM MY BRAIN AND MY PENTECOSTAL IS DIALING IN". DISCUSSED USE FOR ANTIBIOTICS WITH PATIENT AND ENCOURAGED HIM TO DISCUSS THIS WITH DR. HUERTA TOMORROW. OFFERED PT PRN TO ASSIST WITH SLEEP. PT DECLINED TRAZADONE, STATED THAT IT CAUSES SCALP ISSUES AND HE IS CONCERNED ABOUT TAKING IT. PT SPEAKING QUICKLY, TANGENTIAL CONVERSATION THAT IS DIFFICULT TO FOLLOW. PT APPEARS ANXIOUS THROUGHOUT CONVERSATION. PT AGREEABLE TO TAKING ZYPREXA AND REQUESTED ASA. PT AGREEABLE TO TAKING IBUPROFEN AND ZYPREXA AND WAS MEDICATED PER EMAR FOR MASS SCORE. OFFERED PATIENT HEADPHONES WHICH HE DECLINED.
[2025-07-31 20:58] VITALS: BP 128/95
--- NOTE | 2025-07-31 21:30 | NUR ---
PT WITH INCREASED AGGITATION. TANGINTIAL CONVERSATION, RAISING HIS VOICE AND CRYING. PT SPOKE WITH CLINICAL MATERIAL HANDLER BARBIE AND WAS AGREEABLE TO TAKING ORAL MEDICATION FOR ANXIETY. PT MEDICATED PER MASS SCORE WITH ORAL BENADRYL, ATIVAN AND HALDOL.
[2025-08-01] MEDS ORDERED: Erythromycin 0.5% Opth Oint 1 gm LEFTEYE SCH
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
[2025-08-01 08:45] VITALS: BP 126/83
[2025-08-01] MEDS ORDERED: Multivitamins 1 Tab PO SCH (09:00)
--- NOTE | 2025-08-01 13:08 | NUR ---
AT APPROXIMATELY 1115 PT CAME UP TO THE NURSING STATION HIGHLY AGGITATED. HE WAS YELLING AND POSTURING. HE BELIEVES THAT HE IS GOING TO BECAUSE OF HIS EYE. ABLE TO UNABLE TO REDIRECT. HE IS DISORGANIZD AND TANGENTAL. SECURITY CALLED. MASS SCORE IS 21. PT OFFERED AND ACCEPTED HALIDOL, ATIVAN AND HALIDOL. HE DID CALM AND AFTER MUCH ENCOURAGEMENT LET THIS RN APPLY ANTIBIOTIC OINTMENT TO LEFT EYE. PT THEN TOOK A SHOWER AND IS NOW LAYING IN BED RESTING, EYES CLOSED. RR EVEN AND UNLABORED
--- NOTE | 2025-08-01 17:04 | NUR ---
SHIFT SUMMARY DENIES SI, HI, AVTH FOR THIS RN. NO ACUTE EVENTS SINCE PREVIOUS NOTE, HAS BEEN SLEEPING/RESTING QUIETLY T/O DAY.
[2025-08-01] MEDS ORDERED: Erythromycin 0.5% Opth Oint 3.5 gm LEFTEYE SCH (18:00)
[2025-08-01 20:26] VITALS: BP 97/59
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
[2025-08-02 08:31] VITALS: BP 133/93
--- NOTE | 2025-08-02 17:09 | NUR ---
SHIFT SUMMARY DENIES SI, HI, AVTH. CONTINUES TO HAVE SOMATIC DELUSIONS, MAKING STATEMENTS, LIKE "I'M GOING TO EXPLODE, LIKE BLOW TO PIECES". PT GOT AGITATED AFTER A PHONECALL, WENT TO ROOM AND BEGAN YELLING. GIVEN ZYPREXA PER EMAR. PT IS NOW RESTING QUIETLY PLAYING SWITCH IN DAYROOM. NO OTHER ACUTE EVENTS TODAY.
[2025-08-02 20:20] VITALS: BP 132/79
--- NOTE | 2025-08-03 05:20 | NUR ---
SHIFT SUMMARY Pt is A&O to self, place, and situation. He is calm, cooperative, appropriately dressed, but somewhat disheveled. Eye contact is limited. Pt describes his mood as "allright" but presents as depressed and sad, affect is blunted. Pt denies SI, HI, and hallucinations. Pt also denies current pain or other medical issues. Pt remained in his room throughout the evening and did not come out for evening snack. Pt requested PRN trazodone for sleep. Pt also stated that he did not want to be awakened for his midnight eye ointment. Staff continues to monitor q15m for safety and wellness.
[2025-08-03 08:36] VITALS: BP 141/95
--- NOTE | 2025-08-03 17:59 | NUR ---
SHIFT SUMMARY PT HAS BEEN IN BED ALL SHIFT OTHER THAN FOR MEALS/SNACKS. HE REFUSED HIS EYE OINTMENT AT THE SCHEDULED TIMES AND STATES HE DOESN'T NEED IT ANY LONGER, THAT HIS EYE IS ALL BETTER. WILL ADDRESS THIS WITH THE PROVIDER TOMORROW MORNING. HE DID SHOWER MID MORNING AND WAS IN THERE WITH HIS DOOR WIDE OPEN. WHEN THE DOOR WAS CLOSED THE PT BECAME VERY UPSET AND STARTED SCREAMING ABOUT NOT BEING ABLE TO HAVE THE DOOR CLOSED AND THAT I WAS RUDE FOR NOT EVEN ASKING. HE STEPPED OUT OF THE SHOWER INTO THE ROOM, WITH NO CLOTHES ON OF COURSE AND CONTINUED TO YELL ABOUT HIS LEFT FOOT BEING DEFORMED AND HAVING GAS COME OUT HIS TOES, HE THEN POINTS TO HIS LEFT EYE AND STATES "THIS WHAT IS CAUSING MY FOOT PROBLEMS" PT THEN CONTINUED SHOWER, DRESSED, CAME TO DESK AND ASKED FOR SOMETHING TO CALM HIM DOWN. HE WAS GIVEN AN ORAL B-52. AFTER THAT PT HAS BEEN FINE. HE HAS RECEIVED Q15 MIN VISUAL SAFETY CHECKS THROUGHOUT THE SHIFT
[2025-08-03 19:49] VITALS: BP 118/77
--- NOTE | 2025-08-03 21:39 | NUR ---
SHIFT SUMMARY Pt is A&O to self, place, and situation. He is calm, cooperative, appropriately dressed. Eye contact is limited. Pt describes his mood as "anxious," affect is blunted. Pt denies SI, HI, and hallucinations. Pt also denies current pain or other medical issues. At about 2015, pt presented to the nurse station reporting anxiety 9/10w and requested PRN hydroxyzine; behavior was not congruent to report. Hydroxyzine was given at 2018 for MASS 2. Pt remained in his room throughout the evening but did come out for evening snack and group. Pt requested PRN trazodone for sleep. Staff continues to monitor q15m for safety and wellness.
--- NOTE | 2025-08-04 03:46 | NUR ---
TRANSFER OF CARE NO ACUTE EVENTS SINCE ASSUMING CARE FROM BRADY
--- NOTE | 2025-08-04 04:50 | NUR ---
ASSUMED CARE AT 4AM. PATIENT CURRENTY SLEEPING. NO NOTED BEHAVIORS OR ISSUES. WE WILL CONTIUE TO MONITOR EVERY 15 MINUTES FOR SAFETY AND COMFORT.
--- NOTE | 2025-08-04 17:47 | NUR ---
SHIFT SUMMARY PT HAS HAD A FAIRLY DECENT DAY, HE HAS BEEN UP FOR ALL MEALS/SNACKS, NO GROUP WAS PROVIDED. HE WENT BACK TO BED AFTER BKFT. AROUND 0945 HE CAME TO THE DESK AND GOT HIMSELF VERY WORKED UP WANTING TO TALK ABOUT TINY PIECES OF YAM WITH SPIKES STICKING OF THE TINY PIECES OF YAM, THESE YAM PIECES ARE IN HIS BLOODSTREAM. HE STS THIS IS WHAT CAUSES THE BLOOD INFECTION THAT HE HAS IN HIS L FOOT. PT WAS ASSURED HE DOESN'T HAVE A BLOOD INFECTION BY THE INSPECTOR [employer]IES. PT WAS MEDICATED FOR A MASS SCORE OF 7 WITH ZYPREXA, HE WAS THEN ENCOURAGED TO TAKE A SHOWER, WHICH HE DID. HE THEN SLEPT MOST OF THE REST OF THE SHIFT. AROUND 4 PM HE CAME TO THE TV ROOM AND WAS APPROPRIATE IN THE MILIEU. HE HAS DENIED SI/HI/AVH AND HAS RECEIVED Q15 MIN VISUAL SAFETY CHECKS THROUGHOUT THE SHIFT.
[2025-08-04 20:41] VITALS: BP 123/85
--- NOTE | 2025-08-04 21:00 | NUR ---
EARLY IN SHIFT PATIENT CAME TO NURSE'S STATION AND ASKED IF HE NEEDED A SHOT BECAUSE HE PUT HIS HAND IN THE TOILET. HE STATED HE DID THIS WHEN HE WAS SHOWERING BECAUSE HE FELT HE NEEDED TO. STATED HE HAD "A LOT OF ANXIETY" AND WAS REQUESTING MEDICATION FOR THIS. MEDICATION WAS ADMINISTERED. CHECKED ON PATIENT APPROX 40 MINUTES AFTER MED AND HE WAS RESTING IN BED, STATED HE WAS TRYING TO SLEEP BUT COULN'T. REQUESTED A MEDICATION FOR SLEEP.
--- NOTE | 2025-08-04 23:50 | NUR ---
MID SHIFT SUMMARY: PT HAS BEEN IN BED RESTING WITH EYES CLOSED, DEEP EVEN BREATHING SINCE MEDICATIONS ADMINISTERED. NO CHANGES TO STATUS.
--- NOTE | 2025-08-05 04:10 | NUR ---
END OF SHIFT SUMMARY Assumed care at 2400. Patient has continued to sleep throughout the night. Even chest rise and fall noted. Will continue close monitoring every 15 minutes for safety and comfort.
[2025-08-05 08:51] VITALS: BP 168/156
--- NOTE | 2025-08-05 12:17 | NUR ---
SHIFT ASSESSMENT PT IS ALERT AND ORIENTED, FAIR GROOMING, GOOD EYE CONTACT AND CLEAR REGULAR SPEECH. HE DENIES SI/HI/AVH AND STATES "THERE IS NOTHING WRONG WITH HEAD". HE DOES CONTINUE TO ENDORSE HIS L FOOT IS LEAKING GAS AND IT HAS AN INFECTION IN THE BLOOD OF HIS FOOT CAUSED BY THE YAM'S WITH SPIKES ON THEM, THAT ARE IN HIS BLOOD. PT WAS UP FOR BKFT BUT REFUSED TO GET UP FOR SNACK OR MORNING GROUP. HE DID ATTEND LUNCH, WILL PUT HIM IN FOR DOUBLE PORTION MEALS HE IS ALWAYS HUNGRY AFTER MEALS. PT WILL CONTINUE TO RECEIVE Q15 MIN VISUAL SAFETY CHECKS THROUGHOUT THE SHIFT.
--- NOTE | 2025-08-05 15:30 | NUR ---
SHIFT SUMMARY PT HAS HAD A DECENT AFTERNOON SINCE MORNING ENTRY. HE DID APPROACH THE DESK AND ASK FOR SOMETHING FOR ANXIETY AT A 5/10 LEVEL. VISTARIL WAS GIVEN WITH A MASS SCORE OF 7. HE DID TALK ABOUT NEEDING SURGERY ON HIS LEFT EYE. HOWEVER HE STATED WE DIDN'T DO ANYTHING ABOUT WHEN HE WAS HERE LAST TIME. IT WAS EXPLAINED TO HIM THAT HE NEEDS TO SEE HIS PCP ABOUT IT, OR AN EYE DOCTOR. HE HAS CONTINUED TO BE MONITORED
--- NOTE | 2025-08-05 17:54 | NUR ---
ADDITIONAL END OF SHIFT SINCE LAST ENTRY, PT HAD THE VISTIRAL AT 1450. AT APPROX 1530, PT WAS SITTING IN CHAIR NEXT TO TV ROOM DOOR. HE STARTED SPEAKING OF HIS EYES AND WANTED TO GO TO THE ER THAT HE NEEDED TO HAVE EMERGENCY SURGERY. HE WAS GIVEN ZYPREXA AT 1540. PT VERY, VERY QUICKLY ESCALATED TO SCREAMING, CLENCHING FISTS AND CALLING STAFF VULGAR NAMES. HE REMAINED SEATED THE WHOLE TIME BUT WAS COMPLETELY OUT OF CONTROL EMOTIONALLY. SECURITY WAS CALLED. AT 1555 PT WAS GIVEN AN ORAL B-52 THAT HE TOOK WILLINGINLY. PT CONTINUED TO SCREAM AND YELL AND SPOKE A MINAGERIE OF THINGS, MOST OF WHICH REVOLVED AROUND HIS EYES AND FEET. GROCERY PACKER WAS ABLE TO DE-ESCALATE THIS PT AND EVENTUALLY ESCORTED HIM TO HIS ROOM WHERE HE REMAINED UNTIL DINNER. HE IS UP FOR DINNER NOW AND IS APPROPRIATE.
--- NOTE | 2025-08-06 04:58 | NUR ---
SHIFT SUMMARY Pt is A&O to self, place, and situation. He is calm, cooperative, appropriately dressed. Eye contact is limited. Pt describes his mood as "okay," affect is flat. Pt denies SI, HI, hallucinatinos. Pt also denies pain. Pt remained in his room throughout the evening. Pt received PRN trazodone for sleep. Staff continues to monitor q15m for safety and wellness.
[2025-08-06 08:47] VITALS: BP 138/92
--- NOTE | 2025-08-06 16:26 | NUR ---
PATIENT WAS ENGAGED IN GROUP FOR 90 MINUTES. THE PATIENT CREATED A PILLOW AND TWO SCRATCH ARTS. THE PATIENT WAS RESPECTFUL TO BOTH PEERS AND STAFF AND ASSISTED OTHERS.
--- NOTE | 2025-08-06 16:30 | NUR ---
SHIFT SUMMARY PT DENIES SI/HI/AVH, AND HE DID NOT APPEAR TO BE RESPONDING TO INTERNAL STIMULI. HE WAS COMPLIANT WITH ALL MEDICATIONS AND WAS GIVEN PRN IBUPROFEN FOR C/O R FOOT PAIN, SEE MAR. HE PARTICIPATED IN GROUPS AND FILLED OUT HIS COMMUNITY FORM, SEE GROUP PROGRESS NOTE. HE INQUIRED ABOUT D/C PLAN AND THIS RN INFORMED HIM OF THE PLAN TO REVALUATE HIS PROGRESS ON 08/08/25. HE WAS CALM ABOUT THIS INFORMATION. PT HAD NO ACUTE BEHAVIORS TO REPORT THIS SHIFT.
[2025-08-06 20:36] VITALS: BP 148/80
--- NOTE | 2025-08-06 21:34 | NUR ---
Patient insisted he would not be taking haldol at as he stated he is allergic. Explained he has taken it twice daily and miscellaneous times, without and side effects, and he still refused. Will continue monitoring every 15 minutes for safety and comfort
--- NOTE | 2025-08-07 04:35 | NUR ---
Patient was only up for a short amount of time after the start of the shift last night. He came out of his room to ask if the [facility] would shave his legs and chest so that "the morphine antibiotic" would work more efficiently in his body. He didn't get upset when told that it could not be done here. HE REFUSED his scheduled haldol last night stating he was "deathly allergic". When this nurse explained that he had taken it several times here in the [facility] and even twice daily for the last three days, he still was not convinced. At , he received his Risperdone and a 50mg Trazodone, and so far he has slept all night. Will continue close monitoring every 15 minutes for safety and comfort.
[2025-08-07 08:41] VITALS: BP 121/86
--- NOTE | 2025-08-07 17:28 | NUR ---
SHIFT NOTE PT DENIES SI/HI/AVTH THIS SHIFT. HE WAS COOPERATIVE WITH ALL MEDICATIONS. AT FIRST HE REFUSED HIS HALDOL STATING HE WAS ALLERGIC TO IT AND REQUESTED I GET RECORDS FROM [facility] TO GET AN UPDATED ALLERGY LIST. HE CLAIMS IT GIVES HIM SEIZURES. HE THEN SAID HE WOULD TAKE THE MEDICATION. SEE PREVIOUS NOTE. PT SIGNED NING FOR RECORDS TO BE RETRIEVED AND MULTIPLE ATTEMPTS WERE MADE TO FAX IT TO [facility] BUT WAS NOT SUCCESSFUL, WILL HAVE NEXT SHIFT ATTEMPT. PT WAS EUTHYMIC, CALM, AND COOPERATIVE. HE ATTENDED GROUPS AND WAS ACTIVE IN THE MILIEU. PT STATES HE IS READY TO D/C HOME TOMORROW.
[2025-08-08 08:49] VITALS: BP 142/126
--- NOTE | 2025-08-08 13:23 | NUR ---
DISCHARGE SUMMARY PT PACKET PRINTED AND EXPLAINED TO PT. PT STATES UNDERSTANDING TO MAKE APPOINTMENT WITH PCP AT [facility] AND CHECK INTO [facility] OPEN ACCESS THIS WEEK FOR APPOINTMENT TO GET [facility] IN A MONTH. ACKNOWLEDGEMENT FORM SIGNED. HIS MOTHER BROUGHT HIM CLOTHES AND HE CHANGED HIMSELF. BELONGINGS GIVEN TO PT AND FORM SIGNED. PT DENIES ANY QUESTIONS. HE AMBULATED OUT WITH HIS MOTHER TO TRANSPORT HIM HOME. NO RX'S ORDERED ON D/C.
== END 2025-08-08 13:10 | disposition home or self-care (01) | DRG 885 ==
LOC: BHU 00:36
PROVIDERS: ADMIT Psychiatry & Neurology Psychiatry
DX: F20.0 Paranoid schizophrenia (principal); R45.851 Suicidal ideations; F15.10 Other stimulant abuse, uncomplicated; Z90.89 Acquired absence of other organs; F17.210 Nicotine dependence, cigarettes, uncomplicated; Z91.010 Allergy to peanuts; Z88.8 Allergy status to other drugs, medicaments and biological substances; Z91.048 Other nonmedicinal substance allergy status
CPT/HCPCS: A9270

== ENCOUNTER 2025-08-12 12:31 | Observation (INO) | payer OTHER ==
[~2025-08-12] VITALS: Ht 180.3 cm; Wt 89.8 kg
[2025-08-12] MEDS ORDERED: RISPERIDONE2 M9 PO (13:53)
[2025-08-12] MEDS ORDERED: HYDPAM50 PO (13:53)
[2025-08-12 16:19] LABS: Source, Urine Voided
[2025-08-12 16:36] LABS: Bilirubin, Urine Neg (Neg); Glucose Qualitative, Urine Neg (Neg); Ketones, Urine Neg (Neg); Leukocyte Esterase, Urine Neg (Neg); Protein, Urine Neg (Neg); Specific Gravity, Urine 1.010 (1.003-1.022); Urobilinogen, Urine NORM (Normal)
[2025-08-12 16:39] LABS: BASOPHILS ABSOLUTE AUTO 0.04 K/mm3 (0.00-0.23); BASOPHILS PERCENT AUTO 1 % (0-2); EOSINOPHILS ABSOLUTE AUTO 0.07 K/mm3 (0.00-0.68); EOSINOPHILS PERCENT AUTO 1 % (0-6); Hematocrit 41.1 % (37.0-53.0); Hemoglobin 13.5 g/dL (13.5-17.5); IMMATURE GRAN ABSOLUTE AUTO 0.03 K/mm3 (0.00-0.10); IMMATURE GRAN PERCENT AUTO 0 % (0-1); LYMPHOCYTES ABSOLUTE AUTO 1.60 K/mm3 (0.84-5.20); LYMPHOCYTES PERCENT AUTO 19 % (21-46); MONOCYTES ABSOLUTE AUTO 0.64 K/mm3 (0.16-1.47); MONOCYTES PERCENT AUTO 8 % (4-13); Mean Corpuscular HGB Conc 32.8 g/dL (31.5-36.5); Mean Corpuscular Volume 90 fL (80-100); NEUTROPHILS ABSOLUTE AUTO 6.17 K/mm3 (1.96-9.15); NEUTROPHILS PERCENT AUTO 72 % (41-73); NRBC ABSOLUTE 0.00 K/mm3 (0.00-0.02); NRBC Auto 0.0 /100 WBC (0.0-0.2); Platelet Count 286 K/mm3 (150-400); RDW Coefficient Variation 13.5 % (11.7-14.2); RDW Standard Deviation 44.1 fL (35.1-46.3)
[2025-08-12 16:50] LABS: Ethanol (Alcohol), Blood, Med <3 mg/dL; Salicylate 3.9 mg/dL (2.8-20.0)
[2025-08-12 16:57] LABS: Acetaminophen, Random <2.0 ug/mL (10.0-30.0); Alanine Aminotransfer (ALT/SGP 21 U/L (12-78); Albumin, Blood 3.7 g/dL (3.4-5.0); Albumin/Globulin Ratio 1.2 (0.8-1.8); Anion Gap 9 mmol/L (3-11); Aspartate Aminotrans (AST/SGOT 10 U/L (12-37); Bilirubin, Total 0.3 mg/dL (0.1-1.0); Blood Urea Nitrogen 7 mg/dL (8-24); CO2, Blood 29 mmol/L (21-32); Calcium, Blood 9.0 mg/dL (8.5-10.1); Chloride, Blood 103 mmol/L (98-108); Creatinine, Blood 0.80 mg/dL (0.60-1.20); Globulin, Blood 3.2 g/dL (2.2-4.0); Glucose, Blood 101 mg/dL (70-99); Potassium, Blood 3.8 mmol/L (3.5-5.5); Sodium, Blood 137 mmol/L (136-145); Total Protein, Blood 6.9 g/dL (6.4-8.2)
[2025-08-12 16:57] LABS: Color, Urine Pale Yellow (P-Yellow)
[2025-08-12 16:59] LABS: U Amphetamine Screen DETECTED; U Barbiturate Screen Not Detected; U Benzodiazapine Screen Not Detected; U Buprenorphine Screen Not Detected; U Cannabinoids Screen DETECTED; U Cocaine Screen Not Detected; U Methadone Screen Not Detected; U Methamphetamine Screen DETECTED; U Opiates Screen Not Detected; U Oxycodone Screen Not Detected; U Phencyclidine Screen Not Detected
[2025-08-13] MEDS ORDERED: Methyl Salicylate/Menth/Camph 57 GM TUBE TOP ONE (16:20)
[2025-08-14 14:03] VITALS: BP 156/83
== END 2025-08-14 14:09 | disposition home or self-care (01) ==
LOC: ER 12:31 → EOR 12:32
PROVIDERS: Emergency Medicine; ADMIT Emergency Medicine
DX: F20.0 Paranoid schizophrenia (principal); F15.10 Other stimulant abuse, uncomplicated; F17.210 Nicotine dependence, cigarettes, uncomplicated; Z88.8 Allergy status to other drugs, medicaments and biological substances; Z91.010 Allergy to peanuts
CPT/HCPCS: 80053; 80320; 81003; 85025; 99285; A9270; G0378; G0480

== ENCOUNTER 2025-09-16 14:41 | Emergency (ER) | payer OTHER ==
[~2025-09-16] VITALS: Ht 177.8 cm; Wt 79.4 kg
[~2025-09-16 14:41] MED LIST changes: +RISPERIDONE2 M9 PO
[2025-09-16 15:02] VITALS: BP 140/78
[2025-09-17] MEDS ORDERED: MONDOXYNE NL100 MG PO (09:27)
[2025-09-17] MEDS ORDERED: Zovirax Cream 5%2 GM TOP (10:57)
== END 2025-09-16 15:35 | disposition left against medical advice (07) ==
LOC: ER 14:41
DX: Z53.21 Procedure and treatment not carried out due to patient leaving prior to being seen by health care provider (principal)

== ENCOUNTER 2025-09-17 09:07 | Emergency (ER) | payer OTHER ==
[~2025-09-17] VITALS: Ht 180.3 cm; Wt 86.2 kg
[2025-09-17 09:22] VITALS: BP 113/72
[2025-09-17] MEDS ORDERED: MONDOXYNE NL100 MG PO (09:27)
[2025-09-17 10:06] LABS: BASOPHILS ABSOLUTE AUTO 0.04 K/mm3 (0.00-0.23); BASOPHILS PERCENT AUTO 0 % (0-2); EOSINOPHILS ABSOLUTE AUTO 0.13 K/mm3 (0.00-0.68); EOSINOPHILS PERCENT AUTO 1 % (0-6); Hematocrit 41.7 % (37.0-53.0); Hemoglobin 14.1 g/dL (13.5-17.5); IMMATURE GRAN ABSOLUTE AUTO 0.05 K/mm3 (0.00-0.10); IMMATURE GRAN PERCENT AUTO 0 % (0-1); LYMPHOCYTES ABSOLUTE AUTO 1.68 K/mm3 (0.84-5.20); LYMPHOCYTES PERCENT AUTO 12 % (21-46); MONOCYTES ABSOLUTE AUTO 1.10 K/mm3 (0.16-1.47); MONOCYTES PERCENT AUTO 8 % (4-13); Mean Corpuscular HGB Conc 33.8 g/dL (31.5-36.5); Mean Corpuscular Volume 87 fL (80-100); NEUTROPHILS ABSOLUTE AUTO 10.81 K/mm3 (1.96-9.15); NEUTROPHILS PERCENT AUTO 78 % (41-73); NRBC ABSOLUTE 0.00 K/mm3 (0.00-0.02); NRBC Auto 0.0 /100 WBC (0.0-0.2); Platelet Count 249 K/mm3 (150-400); RDW Coefficient Variation 13.6 % (11.7-14.2); RDW Standard Deviation 43.7 fL (35.1-46.3)
[2025-09-17 10:29] LABS: Alanine Aminotransfer (ALT/SGP 20.0 U/L (12-78); Albumin, Blood 3.7 g/dL (3.4-5.0); Albumin/Globulin Ratio 1.2 (0.8-1.8); Anion Gap 9.0 mmol/L (3-11); Aspartate Aminotrans (AST/SGOT 20.0 U/L (12-37); Bilirubin, Total 0.9 mg/dL (0.1-1.0); Blood Urea Nitrogen 6.0 mg/dL (8-24); CO2, Blood 25.0 mmol/L (21-32); Calcium, Blood 8.8 mg/dL (8.5-10.1); Chloride, Blood 108.0 mmol/L (98-108); Creatinine, Blood 0.75 mg/dL (0.60-1.20); Globulin, Blood 3.1 g/dL (2.2-4.0); Glucose, Blood 94.0 mg/dL (70-99); Potassium, Blood 3.6 mmol/L (3.5-5.5); Sodium, Blood 138.0 mmol/L (136-145); Total Protein, Blood 6.8 g/dL (6.4-8.2)
[2025-09-17] MEDS ORDERED: Zovirax Cream 5%2 GM TOP (10:57)
== END 2025-09-17 11:10 | disposition home or self-care (01) ==
LOC: ER 09:07
PROVIDERS: Emergency Medicine
DX: B00.89 Other herpesviral infection (principal); R07.9 Chest pain, unspecified; F17.210 Nicotine dependence, cigarettes, uncomplicated; Z88.8 Allergy status to other drugs, medicaments and biological substances; Z91.010 Allergy to peanuts; Z91.09 Other allergy status, other than to drugs and biological substances; Z79.899 Other long term (current) drug therapy
CPT/HCPCS: 80053; 84484; 85025; 93005; 93010; 99283-25

== ENCOUNTER 2025-09-17 17:25 | Emergency (ER) | payer OTHER ==
[~2025-09-17] VITALS: Ht 182.9 cm; Wt 86.2 kg
[~2025-09-17 17:25] MED LIST changes: +MONDOXYNE NL100 MG PO; +Zovirax Cream 5%2 GM TOP
[2025-09-17 17:29] VITALS: BP 83/94
== END 2025-09-17 19:50 | disposition home or self-care (01) ==
LOC: ER 17:25
DX: Z76.5 Malingerer [conscious simulation] (principal); F17.210 Nicotine dependence, cigarettes, uncomplicated; Z79.899 Other long term (current) drug therapy; Z91.010 Allergy to peanuts; Z88.5 Allergy status to narcotic agent; Z88.8 Allergy status to other drugs, medicaments and biological substances
CPT/HCPCS: 99282

== ENCOUNTER 2025-10-16 19:40 | Observation (INO) | payer OTHER ==
[~2025-10-16] VITALS: Ht 172.7 cm; Wt 77.1 kg
[2025-10-16 20:27] LABS: BASOPHILS ABSOLUTE AUTO 0.03 K/mm3 (0.00-0.23); BASOPHILS PERCENT AUTO 0 % (0-2); EOSINOPHILS ABSOLUTE AUTO 0.03 K/mm3 (0.00-0.68); EOSINOPHILS PERCENT AUTO 0 % (0-6); Hematocrit 43.5 % (37.0-53.0); Hemoglobin 14.9 g/dL (13.5-17.5); IMMATURE GRAN ABSOLUTE AUTO 0.04 K/mm3 (0.00-0.10); IMMATURE GRAN PERCENT AUTO 0 % (0-1); LYMPHOCYTES ABSOLUTE AUTO 2.49 K/mm3 (0.84-5.20); LYMPHOCYTES PERCENT AUTO 19 % (21-46); MONOCYTES ABSOLUTE AUTO 0.91 K/mm3 (0.16-1.47); MONOCYTES PERCENT AUTO 7 % (4-13); Mean Corpuscular HGB Conc 34.3 g/dL (31.5-36.5); Mean Corpuscular Volume 86 fL (80-100); NEUTROPHILS ABSOLUTE AUTO 9.81 K/mm3 (1.96-9.15); NEUTROPHILS PERCENT AUTO 74 % (41-73); NRBC ABSOLUTE 0.00 K/mm3 (0.00-0.02); NRBC Auto 0.0 /100 WBC (0.0-0.2); Platelet Count 262 K/mm3 (150-400); RDW Coefficient Variation 13.4 % (11.7-14.2); RDW Standard Deviation 41.7 fL (35.1-46.3)
[2025-10-16 20:56] LABS: Ethanol (Alcohol), Blood, Med <3 mg/dL; Salicylate 2.6 mg/dL (2.8-20.0)
[2025-10-16 21:10] LABS: Acetaminophen, Random <2.0 ug/mL (10.0-30.0); Alanine Aminotransfer (ALT/SGP 22 U/L (12-78); Albumin, Blood 4.2 g/dL (3.4-5.0); Albumin/Globulin Ratio 1.2 (0.8-1.8); Anion Gap 10 mmol/L (3-11); Aspartate Aminotrans (AST/SGOT 15 U/L (12-37); Bilirubin, Total 0.4 mg/dL (0.1-1.0); Blood Urea Nitrogen 12 mg/dL (8-24); CO2, Blood 22 mmol/L (21-32); Calcium, Blood 9.2 mg/dL (8.5-10.1); Chloride, Blood 103 mmol/L (98-108); Creatinine, Blood 0.75 mg/dL (0.60-1.20); Globulin, Blood 3.5 g/dL (2.2-4.0); Glucose, Blood 142 mg/dL (70-99); Potassium, Blood 3.3 mmol/L (3.5-5.5); Sodium, Blood 132 mmol/L (136-145); Total Protein, Blood 7.7 g/dL (6.4-8.2)
[2025-10-17 00:07] LABS: U Amphetamine Screen DETECTED; U Barbiturate Screen Not Detected; U Benzodiazapine Screen Not Detected; U Buprenorphine Screen Not Detected; U Cannabinoids Screen DETECTED; U Cocaine Screen Not Detected; U Methadone Screen Not Detected; U Methamphetamine Screen DETECTED; U Opiates Screen Not Detected; U Oxycodone Screen Not Detected; U Phencyclidine Screen Not Detected
[2025-10-17] MEDS ORDERED: OLANZAPINE1024 PO (04:55)
[2025-10-17 11:21] VITALS: BP 109/68
== END 2025-10-17 13:39 | disposition home or self-care (01) ==
LOC: ER 19:40 → EOR 19:41
PROVIDERS: ADMIT Emergency Medicine
DX: M79.605 Pain in left leg (principal); F15.10 Other stimulant abuse, uncomplicated; F25.9 Schizoaffective disorder, unspecified; Z88.8 Allergy status to other drugs, medicaments and biological substances
CPT/HCPCS: 80053; 80320; 85025; 96372; 99285-25; A9270; G0378; G0480

== ENCOUNTER 2025-10-18 19:12 | Observation (INO) | payer OTHER ==
[~2025-10-18] VITALS: Ht 182.9 cm; Wt 77.1 kg
[~2025-10-18 19:12] MED LIST changes: +OLANZAPINE1024 PO
[2025-10-18] MEDS ORDERED: LORazepam 2 MG/ML 1ML Injection IM ONE (19:35)
[2025-10-18] MEDS ORDERED: Ziprasidone Mesylate 20 MG / Vial IM ONE (19:35)
[2025-10-18 20:42] LABS: BASOPHILS ABSOLUTE AUTO 0.04 K/mm3 (0.00-0.23); BASOPHILS PERCENT AUTO 0 % (0-2); EOSINOPHILS ABSOLUTE AUTO 0.07 K/mm3 (0.00-0.68); EOSINOPHILS PERCENT AUTO 1 % (0-6); Hematocrit 41.2 % (37.0-53.0); Hemoglobin 13.8 g/dL (13.5-17.5); IMMATURE GRAN ABSOLUTE AUTO 0.02 K/mm3 (0.00-0.10); IMMATURE GRAN PERCENT AUTO 0 % (0-1); LYMPHOCYTES ABSOLUTE AUTO 2.35 K/mm3 (0.84-5.20); LYMPHOCYTES PERCENT AUTO 24 % (21-46); MONOCYTES ABSOLUTE AUTO 0.62 K/mm3 (0.16-1.47); MONOCYTES PERCENT AUTO 6 % (4-13); Mean Corpuscular HGB Conc 33.5 g/dL (31.5-36.5); Mean Corpuscular Volume 88 fL (80-100); NEUTROPHILS ABSOLUTE AUTO 6.87 K/mm3 (1.96-9.15); NEUTROPHILS PERCENT AUTO 69 % (41-73); NRBC ABSOLUTE 0.00 K/mm3 (0.00-0.02); NRBC Auto 0.0 /100 WBC (0.0-0.2); Platelet Count 245 K/mm3 (150-400); RDW Coefficient Variation 13.6 % (11.7-14.2); RDW Standard Deviation 43.9 fL (35.1-46.3)
[2025-10-18 21:09] LABS: Ethanol (Alcohol), Blood, Med <3 mg/dL; Salicylate 2.6 mg/dL (2.8-20.0)
[2025-10-18 21:13] LABS: Acetaminophen, Random <2.0 ug/mL (10.0-30.0); Alanine Aminotransfer (ALT/SGP 17 U/L (12-78); Albumin, Blood 4.0 g/dL (3.4-5.0); Albumin/Globulin Ratio 1.2 (0.8-1.8); Anion Gap 7 mmol/L (3-11); Aspartate Aminotrans (AST/SGOT 9 U/L (12-37); Bilirubin, Total 0.4 mg/dL (0.1-1.0); Blood Urea Nitrogen 6 mg/dL (8-24); CO2, Blood 26 mmol/L (21-32); Calcium, Blood 9.2 mg/dL (8.5-10.1); Chloride, Blood 107 mmol/L (98-108); Creatinine, Blood 0.84 mg/dL (0.60-1.20); Globulin, Blood 3.3 g/dL (2.2-4.0); Glucose, Blood 93 mg/dL (70-99); Potassium, Blood 3.4 mmol/L (3.5-5.5); Sodium, Blood 137 mmol/L (136-145); Total Protein, Blood 7.3 g/dL (6.4-8.2)
[2025-10-18] MEDS ORDERED: Potassium Chloride 10 Meq Tablet SA PO ONE (21:30)
[2025-10-18] MEDS ORDERED: NS 1,000 ML IV SCH (22:35)
[2025-10-19 09:46] VITALS: BP 109/68
[2025-10-19 14:59] LABS: Source, Urine Clean Catch
[2025-10-19 15:02] LABS: Bilirubin, Urine Neg (Neg); Color, Urine Yellow (P-Yellow); Glucose Qualitative, Urine Neg (Neg); Ketones, Urine Neg (Neg); Leukocyte Esterase, Urine Neg (Neg); Protein, Urine Neg (Neg); Specific Gravity, Urine 1.015 (1.003-1.022); Urobilinogen, Urine NORM (Normal)
[2025-10-19 15:18] LABS: U Amphetamine Screen DETECTED; U Barbiturate Screen Not Detected; U Benzodiazapine Screen DETECTED; U Buprenorphine Screen Not Detected; U Cannabinoids Screen DETECTED; U Cocaine Screen Not Detected; U Methadone Screen Not Detected; U Methamphetamine Screen DETECTED; U Opiates Screen Not Detected; U Oxycodone Screen Not Detected; U Phencyclidine Screen Not Detected
== END 2025-10-19 16:00 | disposition other institution (70) ==
LOC: ER 19:12 → EOR 19:13
PROVIDERS: Student in an Organized Health Care Education/Training Program; ADMIT Emergency Medicine
DX: F29 Unspecified psychosis not due to a substance or known physiological condition (principal); R45.851 Suicidal ideations; E86.0 Dehydration; E87.6 Hypokalemia; F31.9 Bipolar disorder, unspecified; F20.9 Schizophrenia, unspecified; F17.200 Nicotine dependence, unspecified, uncomplicated; Z88.8 Allergy status to other drugs, medicaments and biological substances; Z91.010 Allergy to peanuts; Z91.09 Other allergy status, other than to drugs and biological substances; Z79.899 Other long term (current) drug therapy
CPT/HCPCS: 80053; 80320; 81003; 85025; 93005; 93010; 96372; 99285-25; A9270; G0378; G0480; J2060; J3486; J7030

== ENCOUNTER 2025-10-19 11:43 | Inpatient (IN) | payer OTHER ==
[~2025-10-19] VITALS: Ht 182.9 cm; Wt 82.1 kg
[2025-10-19] MEDS ORDERED: Ondansetron 4 MG SoluTab MM PRN (14:25)
[2025-10-19] MEDS ORDERED: Polyethylene Glycol 3350 17 gm PO PRN (14:25)
[2025-10-19] MEDS ORDERED: Aluminum Hydroxide 320MG/5ML 473 ML PO PRN (14:30)
[2025-10-19] MEDS ORDERED: LORazepam 2 MG/ML 1ML Injection IM PRN (14:30)
[2025-10-19] MEDS ORDERED: FLU VACC TS2025-26(6MOS UP)/PF 45 MCG/0.5 ML SYRINGE IM SCH (14:30)
[2025-10-19 16:26] VITALS: BP 106/67
[2025-10-19 19:52] VITALS: BP 106/67
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
--- NOTE | 2025-10-20 04:48 | NUR ---
SHIFT SUMMARY: PLEASE SEE PATIENT ADMISSION NOTE. PATIENT WENT TO BED AND WAS NOTED TO BE RESTING QUIETLY WITH EYES CLOSED AND RESPIRATIONS CONFIRMED FOR THE REMAINDER OF THE SHIFT. CONTINUING TO MONITOR FOR SAFETY WITH Q15 MINUTE CHECKS.
[2025-10-20] MEDS ORDERED: Multivitamins 1 Tab PO SCH (09:00)
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
[2025-10-20 20:07] VITALS: BP 113/94
--- NOTE | 2025-10-20 21:17 | NUR ---
MEDICATION REFUSAL: PATIENT REFUSED HIS EVENING RISPERDAL. HE STATED, "I DON'T HAVE ANY MEDICATIONS." CONTINUING TO MONITOR, AND WILL GIVE LATE IF HE REQUESTS.
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
--- NOTE | 2025-10-21 18:24 | NUR ---
SHIFT SUMMARY PT A/O X2 AND DECLINES CARE. HE DENIES SI, HI. HE CONTINUES TO REPORT BURNING IN HIS LEGS AND MAY BE RESPONDING TO INTERNAL STIMULI. UNCLEAR IF PT KNOWS WHY HE IS IN THE [facility]. PT DECLINES TO TAKE ANY MEDICATIONS AND STATES THAT HE IS "ALLERGIC TO RISPERDAL." PT WONDERING WHEN HE IS ABLE TO DISCHARGE. HE ATTENDED LUNCH AND DINNER BUT DID NOT ATTEND ANY GROUPS. HE CONTINUES TO BE MONITORED Q15 PER UNIT PROTOCOL FOR SAFETY AND WELLNESS.
[2025-10-21 19:34] VITALS: BP 109/95
--- NOTE | 2025-10-21 20:18 | NUR ---
MEDICATION REFUSAL: PATIENT DECLINED RISPERDAL THIS EVENING. HE STATED, "NO, THANK YOU" AND "I'M ALLERGIC (TO RISPERDAL)". CONTINUING TO PROVIDE MEDICATION EDUCATION APPROPRIATE.
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
== END 2025-10-22 09:44 | DRG 885 ==
LOC: BHU 11:43
PROVIDERS: ADMIT Psychiatry & Neurology Psychiatry
DX: F20.0 Paranoid schizophrenia (principal); R45.851 Suicidal ideations; F15.10 Other stimulant abuse, uncomplicated; F17.210 Nicotine dependence, cigarettes, uncomplicated; Z90.89 Acquired absence of other organs; Z79.899 Other long term (current) drug therapy; Z91.010 Allergy to peanuts; Z88.8 Allergy status to other drugs, medicaments and biological substances
CPT/HCPCS: A9270